=== PATIENT | male | born 1935 | race African-American/Black ===

== ENCOUNTER 2019-07-30 10:41 | Emergency (ER) | payer MEDICARE, BC ==
[~2019-07-30] VITALS: Ht 180.3 cm; Wt 79.0 kg
[2019-07-30 14:28] VITALS: BP 159/76
== END 2019-07-30 14:43 | disposition home or self-care (01) ==
LOC: ER 11:07
DX: J31.0 Chronic rhinitis (principal)
CPT/HCPCS: 70220; 99283